=== PATIENT | female | born 1955 | race Hispanic/Latino ===

== ENCOUNTER 2019-01-29 21:11 | Emergency (ER) | payer BC ==
[2019-01-29 22:00] VITALS: BP 147/76; PULSE 98; RESP 20; TEMP 98; O2SAT 100
[2019-01-29 22:29] LABS: SQUAMOUS EPITHIAL 2 /hpf (0-5); URINE BACTERIA MANY (<OCC); URINE BILIRUBIN NEGATIVE (NEGATIVE); URINE BLOOD 2+ (NEGATIVE); URINE CLARITY Hazy (Clear); URINE COLOR Yellow (YELLOW); URINE GLUCOSE (UA) NORMAL (Normal); URINE LEUKOCYTE ESTERASE 3+ Leu/uL (Negative); URINE PROTEIN 1+ mg/dL (NEGATIVE); URINE UROBILINOGEN NORMAL mg/dL (0.2-1.0); WBC CLUMPS FEW /hpf
--- NOTE | 2019-01-29 22:36 | C.PDOC ---
History Of Present Illness 63 y/o female with history of recurrent UTI presents to the ED with history of dysuria and increase frequency today with associated suprapubic pain. She denies any fever, chills, sob, nausea, vomiting, and diarrhea. She is not on any meds. She rates the pain 7/10. Time Seen by Provider: 01/29/19 21:46 History Per: Patient History/Exam Limitations: no limitations Onset/Duration Of Symptoms: Days Current Symptoms Are (Timing): Still Present Severity: Moderate Pain Scale Rating Of: 7 Quality Of Discomfort: Burning Associated Symptoms: Urinary Symptoms. denies: Fever, Chills, Nausea, Vomiting, Diarrhea, Loss Of Appetite, Back Pain, Chest Pain, Constipation Alleviating Factors: None Past Medical History Reviewed: Historical Data, Nursing Documentation, Vital Signs Vital Signs: Last Vital Signs Temp 98 F 01/29/19 21:49 Pulse 98 H 01/29/19 21:49 Resp 20 01/29/19 21:49 BP 147/76 01/29/19 21:49 Pulse Ox 100 01/29/19 21:49 - Medical History PMH: Back Problems Surgical History: Back Surgery (fusion L4-L5 2013) Family History: States: Unknown Family Hx - Social History Hx Alcohol Use: No Hx Substance Use: No Review Of Systems Constitutional: Negative for: Fever, Chills, Weakness Cardiovascular: Negative for: Chest Pain Respiratory: Negative for: Shortness of Breath Gastrointestinal: Negative for: Nausea, Vomiting, Abdominal Pain, Diarrhea, Constipation Genitourinary: Positive for: Dysuria, Frequency. Negative for: Vaginal Discharge, Pelvic Pain Skin: Negative for: Rash Neurological: Negative for: Headache Physical Exam - Physical Exam Appears: Non-toxic, No Acute Distress Skin: Normal Color, Warm, Dry Head: Atraumatic, Normacephalic Eye(s): bilateral: Normal Inspection, PERRL Nose: Normal Oral Mucosa: Moist Tongue: Normal Appearing Lips: Normal Appearing Throat: No Erythema Neck: Normal ROM, Supple Chest: Symmetrical Cardiovascular: Rhythm Regular Respiratory: Normal Breath Sounds, No Wheezing Gastrointestinal/Abdominal: Soft, No Tenderness Back: No CVA Tenderness Neurological/Psych: Oriented x3, Normal Speech, Normal Cognition, Normal Motor, Normal Sensation ED Course And Treatment - Laboratory Results Lab Results: Urine Color Yellow (YELLOW) 01/29/19 22:08 Urine Clarity Hazy (Clear) 01/29/19 22:08 Urine pH 6.0 (5.0-8.0) 01/29/19 22:08 Ur Specific [place] 1.002 (1.003-1.030) L 01/29/19 22:08 Urine Protein 1+ mg/dL (NEGATIVE) H 01/29/19 22:08 Urine Glucose (UA) Normal mg/dL (Normal) 01/29/19 22:08 Urine Ketones Negative mg/dL (NEGATIVE) 01/29/19 22:08 Urine Blood 2+ (NEGATIVE) H 01/29/19 22:08 Urine Nitrate Negative (NEGATIVE) 01/29/19 22:08 Urine Bilirubin Negative (NEGATIVE) 01/29/19 22:08 Urine Urobilinogen Normal mg/dL (0.2-1.0) 01/29/19 22:08 Ur Leukocyte Esterase 3+ Tiana/uL (Negative) H 01/29/19 22:08 Urine WBC (Auto) 333 /hpf (0-5) H 01/29/19 22:08 Urine RBC (Auto) 18 /hpf (0-3) H 01/29/19 22:08 Urine WBC Clumps (Auto) Few /hpf (NONE) H 01/29/19 22:08 Ur Squamous Epith Cells 2 /hpf (0-5) 01/29/19 22:08 Urine Bacteria Many (<OCC) H 01/29/19 22:08 O2 Sat by Pulse Oximetry: 100 Medical Decision Making Medical Decision Making: Plan: UA- positive Pyridium and Macrobid given Disposition Counseled Patient/Family Regarding: Studies Performed, Diagnosis, Need For Followup, Rx Given - Disposition Referrals: [facility] [Outside] Disposition: HOME/ ROUTINE Disposition Time: 22:34 Condition: STABLE Additional Instructions: Continue Macrobid and Pyridium for UTI Follow up with PMD in 1-2 days Return to ED if symptoms worsen Prescriptions: Nitrofurantoin Macrocrystals [Macrobid] 100 mg PO BID #9 cap Phenazopyridine [Pyridium] 200 mg PO TID #6 tab Instructions: Urinary Tract Infection, Adult (DC) Forms: [facility] (Turkish) - Clinical Impression Clinical Impression: UTI (urinary tract infection) - PA / BLOCK [employer] / Resident Statement MD/DO has reviewed & agrees with the documentation as recorded.
== END 2019-01-29 22:41 | disposition home or self-care (01) ==
LOC: C.ER 21:11
DX: N39.0 Urinary tract infection, site not specified (principal)